=== PATIENT | male | born 1960 | race Caucasian/White ===

== ENCOUNTER 2019-09-30 14:13 | Emergency (ER) | payer BC ==
[~2019-09-30] VITALS: Ht 170.2 cm; Wt 63.2 kg
[2019-09-30 14:34] VITALS: BP 188/91
--- NOTE | 2019-09-30 15:10 | PHYS DOC ---
Past History Past Medical History: No Pertinent History Past Surgical History: No Surgical History Alcohol Use: None Adult General Chief Complaint Chief Complaint: NAUSEA/VOMITING/DIARRHEA HPI HPI Patient is a 59-year-old male who presented to ER today for evaluation of 3 weeks history of nausea, vomiting, general weakness, loss about 20 pounds in 3 weeks. Patient is a smoker, he also has some blood in his stool today. Patient denies any fever, no chest pain, no trouble breathing. Patient denies any recent traveling out of the country. He also complains of lower abdominal cramping. Patient denies any medical problem, he is not currently on any medication. All other ROS is negative unless otherwise noted in HPI Review of Systems Review of Systems See above Allergies Allergies Allergies Coded Allergies Type Severity Reaction Last Updated Verified No Known Drug Allergies 09/30/19 No Physical Exam Physical Exam See above Constitutional: Well developed, well nourished, no acute distress, non-toxic appearance. [] HENT: Normocephalic, atraumatic, bilateral external ears normal, oropharynx moist, no oral exudates, nose normal. [] Eyes: PERRLA, EOMI, conjunctiva normal, no discharge. [] Neck: Normal range of motion, no tenderness, supple, no stridor. [] Cardiovascular:Heart rate regular rhythm, no murmur [] Lungs & Thorax: Bilateral breath sounds clear to auscultation [] Abdomen: Bowel sounds normal, soft, there is tenderness to palpation in LLQ, no masses, no pulsatile masses. [] Skin: Warm, dry, no erythema, no rash. [] Back: No tenderness, no CVA tenderness. [] Extremities: No tenderness, no cyanosis, no clubbing, ROM intact, no edema. [] Neurologic: Alert and oriented X 3, normal motor function, normal sensory function, no focal deficits noted. [] Psychologic: Affect normal, judgement normal, mood normal. [] Current Patient Data Vital Signs Vital Signs Date Time Temp Pulse Resp B/P (MAP) Pulse Ox O2 Delivery O2 Flow Rate FiO2 09/30/19 14:34 52 18 188/91 (123) 97 EKG EKG [] Radiology/Procedures Radiology/Procedures [][address] [address] IMAGING REPORT Signed PATIENT: QIAN HINTON ACCOUNT: [id number] : 1960 LOCATION: ER AGE: 59 SEX: M EXAM STATUS: REG ER ORD. PHYSICIAN: TOM REICH DO REASON: lower abdominal pain PROCEDURE: CT ABD PELV W/ IV CONTRST ONLY Exam: CT abdomen and pelvis with contrast INDICATION: Lower abdominal pain TECHNIQUE: Sequential axial images through the abdomen and pelvis obtained following the administration of 75 mL of Omni 300 IV contrast. Sagittal and coronal reformatted images were reconstructed from the axial data and reviewed. Comparisons: None FINDINGS: Heart size is normal. No pericardial effusion. Visualized lung bases are clear. No pleural effusion. Liver, spleen, pancreas, gallbladder and adrenals are unremarkable. Kidneys demonstrate symmetric enhancement. No perinephric inflammation or hydronephrosis. No renal or ureteral calculi are identified. Bladder is decompressed not well evaluated. Prostate is not enlarged. Large bowel is predominantly decompressed. There is an ileocolic intussusception noted in the right lower quadrant. Wall thickening of the cecum is also seen. Small bowel is dilated proximal to the intussusception. No free intra-abdominal air. There is trace free fluid noted within the abdomen. No obstruction. Abdominal aorta has a normal course and caliber. Abdominal vasculature is patent. No enlarged abdominal lymph nodes are identified. 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 No suspicious osseous lesions or acute fractures. IMPRESSION: 1. Findings of a ileocolic intussusception causing obstruction with dilatation of the entire small bowel. 2. There is wall thickening and irregularity noted at the cecum which is concerning for an underlying malignancy. Exposure: One or more of the following in the visualized dose reduction techniques were utilized for this examination: 1. Automated exposure control 2. Adjustment of the MA and/or KV according to patient size 3. Use of iterative of reconstructive technique Electronically signed by: Enrrique Todd MD (09/30/2019 4:29 PM) [id number] DICTATED AND SIGNED BY: ENRRIQUE TODD MD DATE: 09/30/19 1629 CC: TOM REICH DO; ARISTID[facility] SAMUEL ~ Course & Med Decision Making Course & Med Decision Making Pertinent Labs and Imaging studies reviewed. (See chart for details) Patient is a 59-year-old male who was found to have intussusception of the ileocecal causing small bowel obstruction. There is no surgery service at this hospital, will transfer patient to [facility], accepted by Dr. Villalpando. General Surgeon, Dr. ABERNATHY, was called, consulted by phone, will see patient when he gets there. Dragon Disclaimer Dragon Disclaimer This electronic medical record was generated, in whole or in part, using a voice recognition dictation system. Departure Departure: Impression: Primary Impression: Small bowel obstruction Additional Impression: Intussusception, ileocecal Disposition: 02 XFER [facility] HOSP ([facility], accepted by Dr. Villalpando) Condition: STABLE Referrals: ARISTIDES SAMUEL (PCP) Problem Qualifiers TOM REICH DO Sep 30, 2019 15:10
[2019-09-30 15:18] LABS: BASO # 0.2 x10^3/uL (0.0-0.2); BASO % 1 % (0-3); EOS % 0 % (0-3); HEMATOCRIT 47.7 % (39.0-53.0); HEMOGLOBIN 15.8 g/dL (13.0-17.5); LYMPH # 1.4 x10^3/uL (1.0-4.8); LYMPH % 9 % (24-48); MEAN CORPUSCULAR HEMOGLOBIN 30 pg (25-35); MEAN CORPUSCULAR HGB CONC 33 g/dL (31-37); MEAN CORPUSCULAR VOLUME 90 fL (79-100); MONO # 0.3 x10^3/uL (0.0-1.1); MONO % 2 % (0-9); NEUT # 13.3 x10^3uL (1.8-7.7); NEUT % 88 % (31-73); PLATELET COUNT 359 x10^3/uL (140-400); WHITE BLOOD COUNT 15.2 x10^3/uL (4.0-11.0)
[2019-09-30 15:19] LABS: CALCIUM 9.5 mg/dL (8.5-10.1); CREATININE 0.9 mg/dL (0.7-1.3); GFR 86.7; POTASSIUM 4.4 mmol/L (3.5-5.1)
[2019-09-30 15:34] LABS: % ATYL 2 % (0-0); % LYMPHS 9 % (24-48); % MONOS 3 % (0-10); % SEGS 86 % (35-66); ALBUMIN 4.2 g/dL (3.4-5.0); ALBUMIN/GLOBULIN RATIO 1.1 (1.0-1.7); PLT ESTIMATE ADEQUATE (ADEQUATE); TOTAL BILIRUBIN 0.4 mg/dL (0.2-1.0); TOTAL PROTEIN 8.2 g/dL (6.4-8.2)
[2019-09-30] MEDS ORDERED: IOHEXOL 300 MG/ML 75 ML VIAL. IV ONE (15:45)
--- NOTE | 2019-09-30 16:32 | RAD ---
Exam: CT abdomen and pelvis with contrast INDICATION: Lower abdominal pain TECHNIQUE: Sequential axial images through the abdomen and pelvis obtained following the administration of 75 mL of Omni 300 IV contrast. Sagittal and coronal reformatted images were reconstructed from the axial data and reviewed. Comparisons: None FINDINGS: Heart size is normal. No pericardial effusion. Visualized lung bases are clear. No pleural effusion. Liver, spleen, pancreas, gallbladder and adrenals are unremarkable. Kidneys demonstrate symmetric enhancement. No perinephric inflammation or hydronephrosis. No renal or ureteral calculi are identified. Bladder is decompressed not well evaluated. Prostate is not enlarged. Large bowel is predominantly decompressed. There is an ileocolic intussusception noted in the right lower quadrant. Wall thickening of the cecum is also seen. Small bowel is dilated proximal to the intussusception. No free intra-abdominal air. There is trace free fluid noted within the abdomen. No obstruction. Abdominal aorta has a normal course and caliber. Abdominal vasculature is patent. No enlarged abdominal lymph nodes are identified. 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 No suspicious osseous lesions or acute fractures. IMPRESSION: 1. Findings of a ileocolic intussusception causing obstruction with dilatation of the entire small bowel. 2. There is wall thickening and irregularity noted at the cecum which is concerning for an underlying malignancy. Exposure: One or more of the following in the visualized dose reduction techniques were utilized for this examination: 1. Automated exposure control 2. Adjustment of the MA and/or KV according to patient size 3. Use of iterative of reconstructive technique Electronically signed by: Enrrique Andino MD (09/30/2019 4:29 PM) [id number]
[2019-09-30] MEDS ORDERED: IV NORMAL SALINE 1,000ML 1,000 ML IV ONE (16:45)
[2019-09-30] MEDS ORDERED: PIPERACILLIN/TAZOBACTAM 3.375 GM in IV NORMAL SALINE 50ML 50 ML IV ONE (16:45)
[2019-09-30] MEDS ORDERED: IV NORMAL SALINE 50ML 50 ML ONE (16:49)
[2019-09-30] MEDS ORDERED: PIPERACILLIN/TAZOBACTAM 3.375 GM VIAL IV ONE (16:49)
[2019-09-30 17:19] LABS: BACTERIA,URINE 0 /HPF (0-FEW); BILIRUBIN,URINE NEG (NEG); CLARITY,URINE CLEAR; COLOR,URINE YELLOW; GLUCOSE,URINE NEG (NEG); NITRITE,URINE NEG (NEG); RBC,URINE OCC /HPF (0-2); SQUAMOUS EPITHELIAL CELL,UR OCC /LPF; UROBILINOGEN,URINE 0.2 mg/dL (0.2 mg/dL); WBC,URINE RARE /HPF (0-4)
[2019-09-30] MEDS ORDERED: MORPHINE SULFATE 10 MG/ML SYRINGE. SQ ONE (18:30)
[2019-09-30] MEDS ORDERED: ONDANSETRON PF 4 MG/2 ML VIAL. IVP ONE (18:30)
== END 2019-09-30 18:30 | disposition short-term general hospital (02) ==
LOC: ER 14:20
DX: K56.609 Unspecified intestinal obstruction, unspecified as to partial versus complete obstruction (principal); K56.1 Intussusception
CPT/HCPCS: 36415; 74177; 80053; 81001; 83605; 83690; 83880; 84484; 85007; 85025; 85610; 85730; 96365; 99285; J2543; Q9967; J7030